=== PATIENT | female | born 1970 | race Caucasian/White ===

== ENCOUNTER 2023-01-08 19:35 | Emergency (ER) | payer BC, SELFPAY ==
[2023-01-08 19:40] VITALS: BP 144/79; PULSE 109; RESP 18; TEMP 36.1; O2SAT 96
--- NOTE | 2023-01-08 19:54 | ED_ITS ---
HPI - General Adult General Time Seen by Provider: 19:55 Date Seen: 01/08/23 Chief complaint: Abdominal Pain Stated complaint: Abdominal/Back Pain Time Seen by Provider: 01/08/23 19:53 Source: patient, RN notes reviewed and old records reviewed Mode of arrival: ambulatory Limitations: no limitations History of Present Illness HPI narrative: 52-year-old female who presents today with abdominal and back pain. This is been going on for the last 3-4 days. Pain is constant, little bit worse with eating. She has nausea but she has had some ongoing issues with nausea related to Ozembic. Reports that blood sugars have been well controlled. Prior cholecystectomy. Has not taken anything for symptoms. No diarrhea or blood in the stools. Little bit of pain in the back as well. Denies urinary symptoms. No chest pain, shortness of breath, or palpitations. Related Data Home Medications Medication Instructions Recorded Confirmed blood glucose control high and low #1 ea 09/04/22 09/10/22 solution (Accu-Chek Guide L1-L2 Control Solution) blood sugar diagnostic (Accu-Chek #10 ea 09/04/22 09/10/22 Guide test strips) blood-glucose meter (Accu-Chek #1 ea 09/04/22 09/10/22 Guide Glucose Meter) lancets (Accu-Chek Softclix #100 ea 09/04/22 09/10/22 Lancets) lancing device with lancets kit #1 ea 09/04/22 09/10/22 (Accu-Chek Softclix Lancing Device+Lancets kit) levalbuterol tartrate 45 g inhalation 09/04/22 09/10/22 mcg/actuation aerosol inhaler metformin 500 mg tablet,extended ea PO 09/04/22 09/10/22 release 24 hr phentermine 37.5 mg tablet 18.75 mg PO 09/04/22 09/10/22 salmeterol 50 mcg/dose blister ea inhalation 09/04/22 09/10/22 powder for inhalation (Serevent Diskus) semaglutide 0.25 mg or 0.5 mg (2 ml subcut 09/04/22 09/10/22 mg/1.5 mL) subcutaneous pen injector (Ozempic) Previous Rx's Medication Instructions Recorded amoxicillin 875 mg-potassium 1 tab PO BID #20 tabs 09/04/22 clavulanate 125 mg tablet albuterol sulfate 2.5 mg/3 mL 2.5 mg (3 mL) inhalation Q6H PRN 09/10/22 (0.083 %) solution for nebulization shortness of breath or wheezing #75 mL levofloxacin 500 mg tablet 500 mg PO QDAY #10 tabs 09/10/22 Allergies Allergy/AdvReac Type Severity Reaction Status Date / Time minocycline [From Minocin] Allergy Mild Hives Verified 01/08/23 21:12 Review of Systems Status of ROS: Reports: 10 or more systems reviewed and unremarkable except as noted in History and below PFSH PFS Social History Smoking Status: Never smoker Exam Narrative: Exam Narrative: General: well nourished , NAD Head: Atraumatic and normocephalic ENT: External ears and external nose are normal Eyes: Conjunctiva clear, pupils are equal reactive, external ocular motions are intact Neck: Full spontaneous range of motion of the neck Lungs: No respiratory distress Abdomen: Epigastric and mild upper abdominal tenderness Musculoskeletal: No tenderness or deformity Neurologic: No gross focal neurologic deficits Skin: No rashes Psych: Mood and affect are appropriate Const: Vital Signs, click to edit/add: Vital Signs - 24 hr 01/08/23 19:40 Temperature 97.0 F L Pulse Rate [Left F emoral] 109 H Respiratory Rate 18 Blood Pressure [Ri ght Forearm] 144/79 H Pulse Oximetry 96 Oxygen Delivery Ok thod Room Air Course Course Hospital Course: Patient seen examined, prior outpatient records reviewed. Patient presents today with upper abdominal pain for last 3 or 4 days. This does radiate in the back. Concern for possible gastritis, gastric ulcer, bowel obstruction also possible although not having a lot of vomiting in the abdomen is not seem overly distended. Does have some epigastric tenderness and risk factors for acute pancreatitis. Labs and CT scan are ordered. Prior cholecystectomy. Reevaluation(s) Reevaluation #1: Labs independently interpreted by me are reassuring including normal white blood cell count, normal lipase, normal hepatic function panel, no anemia. CT scan independently interpreted by me not demonstrate any acute obstruction or inflammatory changes in the upper abdomen, there does appear to be a ventral hernia containing loops of bowel but no obstructive pattern. Patient stable for discharge with diet and instructions for gastritis, follow-up with primary care. Care today affected by morbid obesity, history of prior abdominal surgeries, diabetes. Time: 21:11 Vital Signs Vital signs: Initial Vital Signs Temperature 97.0 F L 01/08/23 19:40 Temperature Source Temporal Artery Scan 01/08/23 19:40 Pulse Rate 109 H 01/08/23 19:40 Pulse Rhythm 01/08/23 19:40 Respiratory Rate 18 01/08/23 19:40 Blood Pressure 144/79 H 01/08/23 19:40 Blood Pressure Mean 100 01/08/23 19:40 Blood Pressure Position Sitting 01/08/23 19:40 Pulse Oximetry 96 01/08/23 19:40 Oxygen Delivery Method 01/08/23 19:40 Vital Signs Temperature 97.0 F L 01/08/23 19:40 Pulse Rate 109 H 01/08/23 19:40 Respiratory Rate 18 01/08/23 19:40 Blood Pressure 144/79 H 01/08/23 19:40 Pulse Oximetry 96 01/08/23 19:40 Oxygen Delivery Method 01/08/23 19:40 Temperature 97.0 F L 01/08/23 19:40 Pulse Rate 109 H 01/08/23 19:40 Respiratory Rate 18 01/08/23 19:40 Blood Pressure 144/79 H 01/08/23 19:40 Pulse Oximetry 96 01/08/23 19:40 Oxygen Delivery Method 01/08/23 19:40 Medical Decision Making Medical Records Medical records reviewed: Yes I reviewed the patient's medical records Lab Data Lab results reviewed: Yes I reviewed the patient's lab results Labs: Lab Results 01/08/23 01/08/23 Range/Units 20:20 20:20 WBC 9.10 (4.50-11.00) K/uL RBC 4.68 (4.00-5.20) m/uL Hgb 13.4 (12.0-16.0) gm/dL Hct 41.0 (33.0-51.0) % MCV 88 (80-100) fL MCH 29 (26-34) pg MCHC 33 (32-36) gm/dL RDW Coeff of Harshal 13.9 (11.5-15.5) % Plt Count 269 (140-440) K/uL Neut % (Auto) 64.9 (42.0-72.0) % Lymph % (Auto) 27.1 (20-44) % [place] % (Auto) 5.3 (0.0-11.0) % Eos % (Auto) 2.1 (0.0-7.0) % Baso % (Auto) 0.5 (0.0-3.0) % Neut # (Auto) 5.90 (1.7-7.0) K/uL Lymph # (Auto) 2.47 (0.90-2.90) K/uL [place] # (Auto) 0.50 (0.00-0.90) K/UL Eos # (Auto) 0.19 (0.00-0.50) K/uL Baso # (Auto) 0.05 (0.00-0.30) K/uL Sodium 138 (135-149) mmol/L Potassium 4.2 (3.6-5.1) mmol/L Chloride 106 (96-114) mmol/L Carbon Dioxide 24 (20-32) mmol/L BUN 20 (7-30) mg/dL Creatinine 0.6 (0.5-1.5) mg/dL Estimated GFR 109 ml/min Glucose 214 H (60-115) mg/dL Calcium 8.9 (8.4-10.6) mg/dL Total Bilirubin 0.6 (0.1-1.5) mg/dL Direct Bilirubin 0.3 (0.0-0.5) mg/dL AST 31 (12-35) U/L ALT 27 (4-35) U/L Alkaline Phosphatase 116 (40-150) U/L Total Protein 7.1 (6.0-8.3) g/dL Albumin 3.9 (3.3-5.0) g/dL Lipase 151 (23-300) U/L Imaging Data CT scan - abdomen: Attestation: I have reviewed the pertinent imaging results. My impression: No acute findings Radiologist's impression: IMPRESSION: No acute intra-abdominal process identified. Hepatic steatosis. Status post cholecystectomy and partial gastrectomy. Discharge Plan Discharge Clinical Impression: Gastritis Patient Disposition: Home, Self-Care Condition: Stable Instructions: Gastritis (DC) Additional Instructions: Start taking Pepcid daily. Follow-up with your doctor this week. Avoid caffeine, sodas, and alcohol. Discharge Diet: Regular Prescriptions: No Action metformin 500 mg tablet extended release 24 hr PO (DME) Accu-Chek Guide test strips Strip See Rx Instructions .ROUTE .MEDSUPPLY Qty: 10 Label Comments: USE TO TEST ONCE DAILY Rx Instructions: As directed Ozempic 0.25 mg or 0.5 mg(2 mg/1.5 mL) pen injector subcut levalbuterol tartrate 45 mcg/actuation HFA aerosol inhaler inhalation Label Comments: INHALE 1 TO 2 PUFFS BY MOUTH EVERY 6 HOURS NEEDED FOR WHEEZING Serevent Diskus 50 mcg/dose blister with device inhalation Label Comments: INHALE 1 PUFF BY MOUTH TWICE DAILY (DME) lancing device with lancets [Accu-Chek Soft Dev Lancets] Kit See Rx Instructions .ROUTE .MEDSUPPLY Qty: 1 Label Comments: USE DIRECTED Rx Instructions: As directed (DME) Accu-Chek Guide L1-L2 Ctrl Vivian Solution See Rx Instructions .ROUTE .MEDSUPPLY Qty: 1 Label Comments: USE TO TEST DIRECTED Rx Instructions: As directed (DME) lancets [Accu-Chek Softclix Lancets] Misc See Rx Instructions .ROUTE .MEDSUPPLY Qty: 100 Label Comments: USE TO TEST ONCE DAILY Rx Instructions: As directed (DME) blood-glucose meter [Accu-Chek Guide Glucose Meter] Misc See Rx Instructions .ROUTE .MEDSUPPLY Qty: 1 Label Comments: USE TO TEST DAILY DIRECTED Rx Instructions: As directed phentermine 37.5 mg tablet 18.75 mg PO Label Comments: TAKE 1/2 TABLET BY MOUTH DAILY BEFORE AND BREAKFAST amoxicillin-pot clavulanate 875-125 mg tablet 1 tab PO BID Qty: 20 0RF albuterol sulfate 2.5 mg /3 mL (0.083 %) solution for nebulization 2.5 mg inhalation Q6H PRN (Reason: shortness of breath or wheezing) Qty: 75 0RF levofloxacin 500 mg tablet 500 mg PO QDAY Qty: 10 0RF Follow Up/Referrals: Provider,Not a Local [Primary Care Provider] - Stand Alone Forms: [facility] Info Instructions
--- NOTE | 2023-01-08 20:01 | CRLHL7_ITS ---
For Patients: As a result of the Century Cures Act, medical imaging exams and procedure reports are released immediately into your electronic medical record. You may view this report before your referring provider. If you have questions, please contact your health care provider. INDICATION: Upper abdominal pain. TECHNIQUE: CT abdomen and pelvis acquired with 149 cc Isovue 370 IV contrast. COMPARISON: None. FINDINGS: Lower chest: Unremarkable. Liver: Hepatic steatosis. No suspicious focal hepatic lesions. Gallbladder and bile ducts: Gallbladder is absent. No intra or extrahepatic biliary ductal dilatation is identified. Pancreas: Unremarkable. No mass or inflammation. Spleen: Unremarkable. Normal in size. No masses. Adrenal glands: Unremarkable. No nodules. Kidneys: Unremarkable. No suspicious masses, stones, or hydronephrosis. GI tract: Status post car partial gastrectomy. Normal in caliber. No sign of mass or inflammation. Normal appendix. Vasculature: Abdominal aorta is normal in caliber. Mesenteric arteries are patent. Lymph nodes: No lymphadenopathy. Peritoneum/Abdominal Wall: Ventral abdominal fat containing hernia. No sign of mass or infiltration. No free air or significant free fluid. Pelvis: Unremarkable. Bones: Unremarkable for age. IMPRESSION: No acute intra-abdominal process identified. Hepatic steatosis. Status post cholecystectomy and partial gastrectomy. Please note that all CT scans at this facility use dose modulation, iterative reconstruction, and/or weight-based dosing when appropriate to reduce radiation dose to as low as reasonably achievable. Dictated by Ara Martinez MD @ 01/08/2023 9:41:36 PM (Electronically Signed)
[2023-01-08 20:30] LABS: Basophils Absolute Auto 0.05 K/uL (0.00-0.30); Basophils Percent Auto 0.5 % (0.0-3.0); Eosinophils Absolute Auto 0.19 K/uL (0.00-0.50); Eosinophils Percent Auto 2.1 % (0.0-7.0); Hemoglobin* 13.4 gm/dL (12.0-16.0); Immature Granulocytes Abs Auto 0.01 K/uL (0.00-0.30); Immature Granulocytes Pct Auto 0.1 %; Lymphocytes Absolute Auto 2.47 K/uL (0.90-2.90); Lymphocytes Percent Auto 27.1 % (20-44); Mean Corpuscular HGB Conc 33 gm/dL (32-36); Mean Corpuscular Hemoglobin 29 pg (26-34); Mean Corpuscular Volume 88 fL (80-100); Monocytes Percent Auto 5.3 % (0.0-11.0); Neutrophils Percent Auto 64.9 % (42.0-72.0); Platelet Count* 269 K/uL (140-440); RDW Coefficient of Variation % 13.9 % (11.5-15.5); Red Blood Count 4.68 m/uL (4.00-5.20)
[2023-01-08 20:34] LABS: Slide Review Reflex No
[2023-01-08 20:43] LABS: Albumin* 3.9 g/dL (3.3-5.0)
[2023-01-08 20:44] LABS: Chloride* 106 mmol/L (96-114); Potassium* 4.2 mmol/L (3.6-5.1); Sodium* 138 mmol/L (135-149)
[2023-01-08 20:46] LABS: Aspartate Amino Transferase* 31 U/L (12-35); Bilirubin Direct* 0.3 mg/dL (0.0-0.5); Bilirubin Total* 0.6 mg/dL (0.1-1.5); Blood Urea Nitrogen* 20 mg/dL (7-30); Carbon Dioxide* 24 mmol/L (20-32); Creatinine* 0.6 mg/dL (0.5-1.5); Estimated Glomerular Filt Rate 109 ml/min; Total Protein* 7.1 g/dL (6.0-8.3)
[2023-01-08 20:47] LABS: Alanine Aminotransferase* 27 U/L (4-35); Alkaline Phosphatase* 116 U/L (40-150); Calcium* 8.9 mg/dL (8.4-10.6); Glucose* 214 mg/dL (60-115); Lipase* 151 U/L (23-300)
[2023-01-08 21:29] LABS: Appearance Urine Slightly Cloudy (Clear); Bilirubin Urine Negative (Negative); Blood Urine Negative (Negative); Color Urine Yellow (Yellow); Glucose Urine Negative (Negative); Ketones Urine Negative (Negative); Leukocyte Esterase Urine Negative (Negative); Nitrite Urine Negative (Negative); Protein Urine Negative (Negative); Specific Gravity Urine 1.015 (1.000-1.030); Urobilinogen Urine 0.2 (0.2-1.0); pH Urine 5.5 (5.0-8.5)
[2023-01-08] MEDS: 0.9 % SODIUM CHLORIDE 1000 ml 1,000 ML IV (21:33)
[2023-01-08 21:53] LABS: RBC Urine 0-2 (0-2)
[2023-01-08 21:54] LABS: Bacteria Urine Few
== END 2023-01-09 01:50 | disposition home or self-care (01) ==
PROVIDERS: Emergency Provider Family Medicine
DX: K29.70 Gastritis, unspecified, without bleeding (principal)
CPT/HCPCS: 36415; 74177; 80048; 80076; 81001; 83690; 85025; 87086; 99283; 99285; J7030; Q9967

== ENCOUNTER 2023-01-27 21:28 | Emergency (ER) | payer BC, SELFPAY ==
[2023-01-27 21:33] VITALS: BP 143/59; PULSE 108; RESP 20; TEMP 37.2; O2SAT 95; BMI 54.9
[2023-01-27 22:07] VITALS: BP 118/70; PULSE 105; RESP 18; O2SAT 96
--- NOTE | 2023-01-27 22:16 | CRLHL7_ITS ---
For Patients: As a result of the Century Cures Act, medical imaging exams and procedure reports are released immediately into your electronic medical record. You may view this report before your referring provider. If you have questions, please contact your health care provider. Indication: Left knee pain. Technique: Left knee 3 views. Comparison: None. Findings: Bones: No acute fracture or aggressive osseous lesion. Mild lateral patellar subluxation.. Joint spaces: Advanced patellofemoral compartment degenerative changes with joint space narrowing and apparent [id number] contact. Mild degenerative changes of the medial and lateral compartments. Soft tissues: Unremarkable. Impression: No evidence of an acute bony abnormality. Advanced patellofemoral compartment osteoarthritis. Mild lateral patellar subluxation. Dictated by Priyank Jeter MD @ 01/27/2023 11:08:19 PM (Electronically Signed)
[2023-01-27] MEDS: ACETAMINOPHEN 500 MG TABLET 1000 MG PO (22:20)
--- NOTE | 2023-01-27 22:20 | ED_ITS ---
HPI - Extremity Injury (Lower) General Chief Complaint: Extremity Pain/Injury, Lower Stated Complaint: Left Knee Injury Time Seen by Provider: 01/27/23 21:42 Source: patient Mode of arrival: ambulatory History of Present Illness HPI Narrative: 53-year-old female presents to the emergency department an hour after an injury in her home. She reports that she was walking up the stairs when she had sudden onset of pain in her posterior left knee area. She cannot localize the pain on description but upon palpation, it localizes to the lateral insertion of the biceps femoris posteriorly on the left knee. No swelling, no bruising. She d oes not take any anticoagulants. She states that she cannot bear weight. No recent illness, no specific trauma. No prior history of hamstring tear in the past. She did have a knee arthroscopy about 25 years ago to clean up some torn cartilage in that knee but states that the pain was different at that time. There is no pain in the anterior knee. No hip pain, back pain or other injured areas. Opposite knee is not affected. She has not taken any Tylenol, ibuprofen or any other intervention to help with her symptoms. She is currently on a prednisone burst due to asthma. Past medical history notable for diabetes, asthma, morbid obesity. Medications reviewed and noted per EMR. Allergies are to minocycline causing hives. Socially she reports no tobacco or alcohol use. No pertinent travel. ROS is notable for the musculoskeletal symptoms as above. Denies any other generalized, skin, other musculoskeletal, neurological changes. Related Data Home Medications Medication Instructions Recorded Confirmed blood glucose control high and low #1 ea 09/04/22 09/10/22 solution (Accu-Chek Guide L1-L2 Control Solution) blood sugar diagnostic (Accu-Chek #10 ea 09/04/22 09/10/22 Guide test strips) blood-glucose meter (Accu-Chek #1 ea 09/04/22 09/10/22 Guide Glucose Meter) lancets (Accu-Chek Softclix #100 ea 09/04/22 09/10/22 Lancets) lancing device with lancets kit #1 ea 09/04/22 09/10/22 (Accu-Chek Softclix Lancing Device+Lancets kit) levalbuterol tartrate 45 g inhalation 09/04/22 09/10/22 mcg/actuation aerosol inhaler metformin 500 mg tablet,extended ea PO 09/04/22 09/10/22 release 24 hr phentermine 37.5 mg tablet 18.75 mg PO 09/04/22 09/10/22 salmeterol 50 mcg/dose blister ea inhalation 09/04/22 09/10/22 powder for inhalation (Serevent Diskus) semaglutide 0.25 mg or 0.5 mg (2 ml subcut 09/04/22 09/10/22 mg/1.5 mL) subcutaneous pen injector (NutrinsicempFlexcom) Previous Rx's Medication Instructions Recorded amoxicillin 875 mg-potassium 1 tab PO BID #20 tabs 09/04/22 clavulanate 125 mg tablet albuterol sulfate 2.5 mg/3 mL 2.5 mg (3 mL) inhalation Q6H PRN 09/10/22 (0.083 %) solution for nebulization shortness of breath or wheezing #75 mL levofloxacin 500 mg tablet 500 mg PO QDAY #10 tabs 09/10/22 Allergies Allergy/AdvReac Type Severity Reaction Status Date / Time minocycline [From Minocin] Allergy Mild Hives Verified 01/08/23 21:12 [facility] Social History Smoking Status: Never smoker Do you use any of these nicotine containing products: None How often do you have a drink containing alcohol: never How often do you have six or more drinks on one occasion: Never AUDIT-C Alcohol total score: 0 Non-prescribed substance use: denies use Exam Const: Vital Signs, click to edit/add: Vital Signs - 24 hr 01/27/23 21:33 01/27/23 22:07 01/27/23 22:50 Temperature 99 F 97.8 F Pulse Rate [Pulse Oximeter] 108 H 105 H 102 H Respiratory Rate 20 18 16 Blood Pressure [Le ft Upper Arm] 143/59 H 118/70 132/65 Pulse Oximetry 95 96 96 Oxygen Delivery Me thod Room Air Room Air Common normals: no apparent distress Other: Morbidly obese, well groomed. No obvious signs of trauma or injury. HENMT: Common normals: normocephalic Head and scalp: normocephalic Eye: Common normals: conjunctivae normal General eye: normal appearance of both eyes Conjunctiva: conjunctiva(e) normal Extremity: Other: Right knee with normal range of motion, no swelling or tenderness. Left knee has no swelling or tenderness to the anterior knee. Chronically laterally deviated patella, but no hypermobility. No joint line tenderness. There is some mild tenderness at the popliteal fossa main tenderness is at the lateral insertion of the biceps femoris hamstring. Medial insertion nontender. I do not feel any palpable defect. She can still flex and extend the lower legs with normal strength and no difficulty. There is no bruising. Normal dorsiflexion plantar flexion of the foot with no deformity or point bony tenderness at the foot or ankle. Neuro: Motor exam: no movement abnormalities noted Psych: Common normals: speech normal Attitude: engaged Activity/motor behavior: appropriate eye contact Speech: normal speech Insight: insight good Judgement: judgment good Skin: Common normals: no rashes or lesions noted General skin exam: no rashes or lesions noted Course Vital Signs Vital signs: Initial Vital Signs Temperature 99 F 01/27/23 21:33 Temperature Source Temporal Artery Scan 01/27/23 21:33 Pulse Rate 108 H 01/27/23 21:33 Respiratory Rate 20 01/27/23 21:33 Blood Pressure 143/59 H 01/27/23 21:33 Blood Pressure Mean 87 01/27/23 21:33 Pulse Oximetry 95 01/27/23 21:33 Oxygen Delivery Method 01/27/23 21:33 Vital Signs Temperature 99 F 01/27/23 21:33 Pulse Rate 108 H 01/27/23 21:33 Respiratory Rate 20 01/27/23 21:33 Blood Pressure 143/59 H 01/27/23 21:33 Pulse Oximetry 95 01/27/23 21:33 Oxygen Delivery Method 01/27/23 21:33 Temperature 97.8 F 01/27/23 22:50 Pulse Rate 102 H 01/27/23 22:50 Respiratory Rate 16 01/27/23 22:50 Blood Pressure 132/65 01/27/23 22:50 Pulse Oximetry 96 01/27/23 22:50 Oxygen Delivery Method 01/27/23 22:50 MDM - Extremity Injury (Lower) MDM Narrative Medical decision making narrative: Suspect hamstring injury, low suspicion for a complete tear. Recommended an x- ray. Will give Tylenol for pain and reassess. Update: Reviewed x-ray findings with patient, knee cap issues are known and chronic. Reexamined, still no significant bruising or swelling along the hamstring insertion laterally, still has good flexion of the lower leg, normal strength. Low suspicion for full-thickness tear though a partial is certainly a possibility. Counseled on knee immobilizer, crutches, Tylenol, ibuprofen, ice. If still very symptomatic in 5 days, would recommend primary care assessment and coordination of advanced imaging. She verbalizes understanding and agreement Imaging Data knee XR: My impression: Chronic appearing lateral deviation of patella, unrelated. I focus in on the hamstrings, I do not see any obvious defect and do see shadow inserting all the way to typical insertion point on x-ray. Radiologist's impression: Impression: No evidence of an acute bony abnormality. Advanced patellofemoral compartment osteoarthritis. Mild lateral patellar subluxation. Discharge Plan Discharge Clinical Impression: Left hamstring injury Patient Disposition: Home w/ Parent or Adult Condition: Stable Instructions: Hamstring Injury (ED) Additional Instructions: As we discussed, I think you have an injury to your hamstring, the outside half. Based on x-ray and initial exam, it does not seem completely torn. Sometimes these can be tricky and may not fully show the extent of injury for a few days. I would recommend a knee immobilizer, crutches, ice, elevation and rest. Use Tylenol and ibuprofen as needed for pain. Is okay to take the knee immobilizer off when you are resting and bend the knee to prevent stiffness. If the pain is still very bothersome in 5 days, I would like for you to make a follow-up appointment with your primary care doctor to discuss advanced imaging and orthopedic assessment. Activity Level: Activity as Tolerated, No strenuous activity and Weight Bearing as Tolerated Activity Detail: Use crutches for the next 3 days minimum, longer if the pain is still very bothersome. Discharge Diet: Regular Prescriptions: No Action metformin 500 mg tablet extended release 24 hr PO (DME) Accu-Chek Guide test strips Strip See Rx Instructions .ROUTE .MEDSUPPLY Qty: 10 Label Comments: USE TO TEST ONCE DAILY Rx Instructions: As directed Ozempic 0.25 mg or 0.5 mg(2 mg/1.5 mL) pen injector subcut levalbuterol tartrate 45 mcg/actuation HFA aerosol inhaler inhalation Label Comments: INHALE 1 TO 2 PUFFS BY MOUTH EVERY 6 HOURS NEEDED FOR WHEEZING Serevent Diskus 50 mcg/dose blister with device inhalation Label Comments: INHALE 1 PUFF BY MOUTH TWICE DAILY (DME) lancing device with lancets [Accu-Chek Soft Dev Lancets] Kit See Rx Instructions .ROUTE .MEDSUPPLY Qty: 1 Label Comments: USE DIRECTED Rx Instructions: As directed (DME) Accu-Chek Guide L1-L2 Ctrl Vivian Solution See Rx Instructions .ROUTE .MEDSUPPLY Qty: 1 Label Comments: USE TO TEST DIRECTED Rx Instructions: As directed (DME) lancets [Accu-Chek Softclix Lancets] Misc See Rx Instructions .ROUTE .MEDSUPPLY Qty: 100 Label Comments: USE TO TEST ONCE DAILY Rx Instructions: As directed (DME) blood-glucose meter [Accu-Chek Guide Glucose Meter] Misc See Rx Instructions .ROUTE .MEDSUPPLY Qty: 1 Label Comments: USE TO TEST DAILY DIRECTED Rx Instructions: As directed phentermine 37.5 mg tablet 18.75 mg PO Label Comments: TAKE 1/2 TABLET BY MOUTH DAILY BEFORE AND BREAKFAST amoxicillin-pot clavulanate 875-125 mg tablet 1 tab PO BID Qty: 20 0RF albuterol sulfate 2.5 mg /3 mL (0.083 %) solution for nebulization 2.5 mg inhalation Q6H PRN (Reason: shortness of breath or wheezing) Qty: 75 0RF levofloxacin 500 mg tablet 500 mg PO QDAY Qty: 10 0RF Follow Up/Referrals: Provider,Not a Local [Referring] - Stand Alone Forms: [facility] Info Instructions
[2023-01-27 22:50] VITALS: BP 132/65; PULSE 102; RESP 16; TEMP 36.6; O2SAT 96
== END 2023-01-28 | disposition home or self-care (01) ==
PROVIDERS: Emergency Provider Family Medicine; PCP Nurse Practitioner Adult Health
DX: S86.102A Unspecified injury of other muscle(s) and tendon(s) of posterior muscle group at lower leg level, left leg, initial encounter (principal); W10.9XXA Fall (on) (from) unspecified stairs and steps, initial encounter
CPT/HCPCS: 73562; 99282; 99283; M0243; A9270